=== PATIENT | male | born 1970 | race Caucasian/White ===

== ENCOUNTER 2017-02-11 22:39 | Inpatient (IN) | payer OTHER ==
[~2017-02-11] VITALS: Ht 167.6 cm; Wt 87.7 kg
[2017-02-11 23:58] LABS: BASOPHIL % 0.8 % (0-2); PLATELET COUNT 330 x10^3mcL (130-400); RED CELL DISTRIBUTION WIDTH 14.5 % (11.5-14.5)
[2017-02-12] VITALS (7 sets, daily range): BP systolic 111–140; BP diastolic 68–77
[2017-02-12 00:05] LABS: BILIRUBIN TOTAL 0.4 mg/dL (0.20-1.00); POTASSIUM SERUM 4.7 mmol/L (3.5-5.1)
[2017-02-12 00:07] LABS: ALBUMIN 3.2 g/dL (3.4-5.0); CREATININE SERUM 9.5 mg/dL (0.7-1.3)
[2017-02-12 02:58] LABS: MAGNESIUM 2.7 mg/dL (1.8-2.4); PHOSPHOROUS 6.4 mg/dL (2.5-4.9)
[2017-02-12 02:59] LABS: CHOLESTEROL/HDL RATIO 3.6
[2017-02-12 03:05] LABS: FREE T4 0.87 ng/dL (0.76-1.46)
[2017-02-12 03:28] LABS: T3 TOTAL 0.97 ng/mL
[2017-02-12 06:12] LABS: BASOPHIL % 0.5 % (0-2); PLATELET COUNT 297 x10^3mcL (130-400); RED CELL DISTRIBUTION WIDTH 14.4 % (11.5-14.5)
[2017-02-12 06:25] LABS: CALCIUM 9.9 mg/dL (8.5-10.1); CARBON DIOXIDE 27.3 mmol/L (21-32); MAGNESIUM 2.7 mg/dL (1.8-2.4); PHOSPHOROUS 6.5 mg/dL (2.5-4.9); POTASSIUM SERUM 4.6 mmol/L (3.5-5.1)
[2017-02-12 06:48] LABS: CREATININE SERUM 9.6 mg/dL (0.7-1.3)
[2017-02-13] MEDS ORDERED: GOOD SENSE OMEP20 MG PO (00:08)
[2017-02-13 00:10] VITALS: BP 119/86
== END 2017-02-13 00:50 | disposition home or self-care (01) | DRG 282 ==
LOC: ED 22:39 → DU 02-12 01:55
PROVIDERS: Emergency Medicine; ADMIT Family Medicine
DX: K85.90 Acute pancreatitis without necrosis or infection, unspecified (principal); N17.0 Acute kidney failure with tubular necrosis; I12.0 Hypertensive chronic kidney disease with stage 5 chronic kidney disease or end stage renal disease; N18.6 End stage renal disease; D68.69 Other thrombophilia; E44.0 Moderate protein-calorie malnutrition; E11.9 Type 2 diabetes mellitus without complications; E78.2 Mixed hyperlipidemia; E83.41 Hypermagnesemia; E83.39 Other disorders of phosphorus metabolism; E66.9 Obesity, unspecified; D53.9 Nutritional anemia, unspecified; Z99.2 Dependence on renal dialysis; Z68.31 Body mass index [BMI] 31.0-31.9, adult; F17.210 Nicotine dependence, cigarettes, uncomplicated
CPT/HCPCS: 82962; 83880; 84439; 87046; 87046-59; G0480; J1885; J7030; J7042; Q0092

== ENCOUNTER 2017-02-24 22:22 | Emergency (ER) | payer OTHER ==
[~2017-02-24 22:22] MED LIST: GOOD SENSE OMEP20 MG PO
[2017-02-24 23:25] VITALS: BP 134/71
== END 2017-02-25 01:25 | disposition home or self-care (01) ==
LOC: ED 22:22
DX: L03.115 Cellulitis of right lower limb (principal); L98.499 Non-pressure chronic ulcer of skin of other sites with unspecified severity; I12.0 Hypertensive chronic kidney disease with stage 5 chronic kidney disease or end stage renal disease; N18.6 End stage renal disease; Z99.2 Dependence on renal dialysis; E07.9 Disorder of thyroid, unspecified
CPT/HCPCS: 90715; J1885